=== PATIENT | female | born 1965 | race Caucasian/White ===

== ENCOUNTER → 2020-04-17 | Outpatient (CLI) | payer OTHER | LOC: COL.CARD 08:00 | DX: M54.9 Dorsalgia, unspecified (principal); R68.84 Jaw pain; M54.2 Cervicalgia ==

== ENCOUNTER → 2020-04-26 | Outpatient (CLI) | payer OTHER ==
[2020-04-26] VITALS (7 sets, daily range): BP systolic 142–160; BP diastolic 89–95; PULSE 58–96
[~2020-04-26] VITALS: Ht 167.6 cm; Wt 89.2 kg
[~2020-04-26] MED LIST: DITROPAN 5MG TAB5 MG PO; INDERAL60 MG PO; LEVOXYL0.075 MG PO
== END ==
LOC: COL.CARD 10:17
DX: R07.9 Chest pain, unspecified (principal)
CPT/HCPCS: A9500; J2785

== ENCOUNTER 2021-09-26 08:27 | Outpatient (RCR) | payer OTHER | END 2021-09-28 | LOC: MKS.ESL.PT | DX: M25.552 Pain in left hip (principal) ==

== ENCOUNTER 2021-10-24 10:30 | Outpatient (RCR) | payer OTHER | END 2021-10-29 | disposition home or self-care (01) | LOC: MKS.ESL.PT | DX: M25.552 Pain in left hip (principal) ==